=== PATIENT | female | born 1990 | race Caucasian/White ===

== ENCOUNTER 2016-11-17 16:41 | Inpatient (IN) | payer BC ==
[2016-11-17] MEDS ORDERED: Misoprostol 200 MCG Tab PO PRN (16:52)
[2016-11-17] MEDS ORDERED: Lidocaine 1% 50 ML MDV INJECT PRN (16:52)
[2016-11-17] MEDS ORDERED: Water For Irrigation,Sterile 1,000 ML Container IRR PRN (16:52)
[2016-11-17] MEDS ORDERED: Sodium Chloride 0.9% 2.5 ML Syringe FLUSH PRN (16:52)
[2016-11-17] MEDS ORDERED: Butorphanol 1 MG/ML SDV IVPUSH PRN (16:52)
[2016-11-17] MEDS ORDERED: Methylergonovine 0.2 MG/1 ML Amp IM PRN (16:52)
[2016-11-17] MEDS ORDERED: Sodium Chloride 0.9% 10 ML Syringe FLUSH PRN (16:52)
[2016-11-17] MEDS ORDERED: Carboprost Tromethamine 250 MCG/1 ML Amp IM PRN (16:52)
[2016-11-17] MEDS ORDERED: Terbutaline 1 MG/ML SDV SUBCUT PRN (16:52)
[2016-11-17] MEDS ORDERED: Oxytocin/Lactated Ringers 30 UNIT/500 ML BAG IV SCH ×2 (17:00)
[2016-11-17] MEDS ORDERED: Misoprostol 25 MCG (1/4 of 100 MCG) Tab VAG SCH (17:00)
[2016-11-17] MEDS: Lactated Ringers 1,000 ML IV SCH (17:49)
[2016-11-17] MEDS ORDERED: Misoprostol 50 MCG (1/2 of 100 MCG) Tab VAG ONE ×2 (22:18→22:26)
[2016-11-18] MEDS: Lactated Ringers 1,000 ML IV SCH ×5 (01:20→08:16)
[2016-11-18] MEDS ORDERED: fentaNYL 100 MCG/2 ML SDV ONE (06:29)
[2016-11-18] MEDS ORDERED: Ropivacaine HCl/PF 100 ML ONE (06:29)
--- NOTE | 2016-11-18 06:31 | PCM.PREANE ---
Preanesthetic Assessment - Anesthesia/Transfusion/Family Hx Anesthesia History: Prior Anesthesia Without Reaction Other Type of Anesthesia Reaction Comment: Denies any known problems in past Transfusion History: No Prior Transfusion(s) - Review of Systems General: No Symptoms Pulmonary: No Symptoms Cardiovascular: No Symptoms Gastrointestinal: No Symptoms Neurological: No Symptoms Other: Reports: None - Physical Assessment Height: 5 ft 6 in Weight: 76.657 kg ASA Class: 2 Mental Status: Alert & Oriented x3 Airway Class: Mallampati = 2 Dentition: Reports: Normal Dentition Thyro-Mental Finger Breadths: 3 Mouth Opening Finger Breadths: 3 ROM/Head Extension: Full Lungs: Clear to Auscultation, Normal Respiratory Effort Cardiovascular: Regular Rate, Regular Rhythm - Lab Values: Laboratory Last Values WBC 7.81 K/uL (4.0-11.0) 11/17/16 17:40 RBC 4.26 M/uL (4.30-5.90) L 11/17/16 17:40 Hgb 12.0 g/dL (12.0-16.0) 11/17/16 17:40 Hct 35.6 % (36.0-46.0) L 11/17/16 17:40 MCV 83.6 fL (80.0-98.0) 11/17/16 17:40 MCH 28.2 pg (27.0-32.0) 11/17/16 17:40 MCHC 33.7 g/dL (31.0-37.0) 11/17/16 17:40 RDW Std Deviation 41.0 fl (28.0-62.0) 11/17/16 17:40 RDW Coeff of Wilma 14 % (11.0-15.0) 11/17/16 17:40 Plt Count 208 K/uL (150-400) 11/17/16 17:40 MPV 10.00 fL (7.40-12.00) 11/17/16 17:40 Nucleated RBC % 0.0 /100WBC 11/17/16 17:40 Nucleated RBCs # 0 K/uL 11/17/16 17:40 Blood Type O POSITIVE 11/17/16 17:40 Antibody Screen NEGATIVE 11/17/16 17:40 - Allergies Allergies/Adverse Reactions: Allergies Allergy/AdvReac Type Severity Reaction Status Date / Time No Known Allergies Allergy Verified 04/24/14 15:17 - Acknowledgements Anesthesia Type Planned: Epidural Pt an Appropriate Candidate for the Planned Anesthesia: Yes Alternatives and Risks of Anesthesia Discussed w Pt/Guardian: Yes Pt/Guardian Understands and Agrees with Anesthesia Plan: Yes PreAnesthesia Questionnaire HEENT History: Reports: None Cardiovascular History: Reports: None Respiratory History: Reports: None Gastrointestinal History: Reports: GERD Genitourinary History: Reports: None CHUCK BONER History: Reports: , Spontaneous : 3 Para: 1 LMP (Approximate): Musculoskeletal History: Reports: None Neurological History: Reports: None Psychiatric History: Reports: Anxiety Endocrine/Metabolic History: Reports: None Hematologic History: Reports: None Immunologic History: Reports: None - Infectious Disease History Infectious Disease History: Reports: Hepatitis C, Other (See Below) Other Infectious Disease History: pt states at the begining of this she tested positive for hep c but then testing later in was a negative viral load - Past Surgical History HEENT Surgical History: Reports: Adenoidectomy, Tonsillectomy - SUBSTANCE USE Smoking Status *Q: Never Smoker Days Per Week of Alcohol Use: 0 Number of Drinks Per Day: 0 Total Drinks Per Week: 0 Recreational Drug Use History: No - HOME MEDS Home Medications: Home Meds Vit No.78/Iron/Fa [Prenatabs FA] 1 tab PO DAILY 04/24/14 [History] Acetaminophen/Codeine [Tylenol with Codeine No.3 300MG/30MG] 1 - 2 tab PO Q4H PRN #20 tablet 04/25/14 [Rx] - CURRENT (IN HOUSE) MEDS Current Meds: Current Medications Butorphanol Tartrate (Stadol) 1 mg IVPUSH Q1H PRN PRN Reason: Pain Last Admin: 11/18/16 04:27 Dose: 1 mg Carboprost Tromethamine (Hemabate Ds) 250 mcg IM ASDIRECTED PRN PRN Reason: Post Hemorrhage Lactated Ringer's (Ringers, Lactated) 1,000 mls @ 150 mls/hr IV ASDIRECTED MILI Last Admin: 11/18/16 06:17 Dose: 150 mls/hr Oxytocin/Lactated Ringer's (Pitocin In Lr 30 Units/500 Ml) 30 unit in 500 mls @ 2 mls/hr IV TITRATE MILI; 2 MUNITS/MIN PRN Reason: Protocol Last Titration: 11/18/16 03:56 Dose: 6 munits/min, 6 mls/hr Lidocaine HCl (Xylocaine 1%) 50 ml INJECT .ONCE PRN PRN Reason: Laceration repair Methylergonovine Maleate (Methergine) 0.2 mg IM ASDIRECTED PRN PRN Reason: Post Hemorrhage Misoprostol (Cytotec) 200 mcg PO .ONCE PRN PRN Reason: Post Hemorrhage Misoprostol (Cytotec) 25 mcg VAG .ONCE MILI Last Admin: 11/17/16 17:59 Dose: 25 mcg Sodium Chloride (Saline Flush) 10 ml FLUSH ASDIRECTED PRN PRN Reason: Keep Vein Open Sodium Chloride (Saline Flush) 2.5 ml FLUSH ASDIRECTED PRN PRN Reason: Keep Vein Open Sterile Water (Sterile Water For Irrigation) 1,000 ml IRR ASDIRECTED PRN PRN Reason: delivery Terbutaline Sulfate (Brethine) 0.25 mg SUBCUT ASDIRECTED PRN PRN Reason: Tacysystole Last Admin: 11/18/16 01:14 Dose: 0.25 mg Discontinued Medications Oxytocin/Lactated Ringer's (Pitocin In Lr 30 Units/500 Ml) 30 unit in 500 mls @ 500 mls/hr IV ASDIRECTED MILI PRN Reason: 500 MUNITS/MIN Stop: 11/17/16 17:59 Misoprostol (Cytotec) 50 mcg VAG ONETIME ONE Stop: 11/17/16 22:19 Misoprostol (Cytotec) 25 mcg VAG ONETIME ONE Stop: 11/17/16 22:27 Last Admin: 11/17/16 22:38 Dose: 25 mcg
[2016-11-18] MEDS ORDERED: Docusate Sodium 100 MG Cap PO PRN (09:43)
[2016-11-18] MEDS ORDERED: Acetaminophen 500 MG Tab PO PRN ×2 (09:43)
[2016-11-18] MEDS ORDERED: Hydrocortisone 2.5% Crm 30 GM Tube TOP PRN (09:43)
[2016-11-18] MEDS ORDERED: Aluminum Hydroxide/Magnesium Hydroxide/Simethicone Susp 30 ML Cup PO PRN (09:43)
[2016-11-18] MEDS ORDERED: oxyCODONE 5 MG Tab PO PRN (09:43)
[2016-11-18] MEDS ORDERED: Witch Hazel Medicated Pads 40/Jar TOP PRN (09:43)
[2016-11-18] MEDS ORDERED: Benzocaine/Menthol 20%-0.5% Spray 78 GM Cannister TOP PRN (09:43)
[2016-11-18] MEDS ORDERED: Bisacodyl 10 MG Supp RECTAL PRN (09:43)
[2016-11-18] MEDS ORDERED: Lanolin 100% Cream 7 GM Tube TOP PRN (09:43)
[2016-11-18] MEDS ORDERED: Ibuprofen 400 MG Tab PO PRN (09:43)
[2016-11-18] MEDS: Ibuprofen 800 MG Tab PO PRN ×2 (11:46→18:00)
--- NOTE | 2016-11-18 16:14 | OR ---
SURGEON: Naomi Menezes M.D. DATE OF PROCEDURE: 11/18/2016 PREOPERATIVE DIAGNOSES: 1. A 39 and 1 week intrauterine . 2. Induction of labor. 3. Polyhydramnios. POSTOPERATIVE DIAGNOSES: 1. A 39 and 1 week intrauterine . 2. Induction of labor. 3. Polyhydramnios. PROCEDURE: Spontaneous vaginal delivery with intact perineum. LINING SETTER: Jordon Welch, 4. ANESTHESIA: Spinal. ESTIMATED BLOOD LOSS: 300 mL. COMPLICATION: None. FINDINGS: Term male, score 9 at 1 minute, 9 at 5 minutes, weight is pending. Spontaneous delivery, intact placenta, three-vessel cord. Nuchal cord x1 reduced manually. DISPOSITION: The patient to [facility], infant to nursery, stable. DESCRIPTION OF PROCEDURE: Rashmi is a G3, P1-0-1-1, at 39 weeks' gestational age, who presented on the evening of 11/17/2016 for elective induction of labor due to polyhydramnios at term gestation. TORCH titers have been negative. Gestational diabetes screen was normal. Cervical exam initially was unfavorable at 1 cm, fairly thick, -3 station. Therefore, she was initiated on Cytotec ripening. She responded nicely to this and made cervical change throughout the evening hours and in case hardener hours. Pitocin was initiated on case hardener 11/18/2016. The patient was found to be 4 cm, 70% effaced, -1 station. Shortly before 5:00 a.m. Amniotomy was performed. Copious amount of clear fluid was returned. The patient underwent regional anesthesia in the form of spinal, became more comfortable and progressed nicely to 8 cm shortly after 7:00 a.m., shortly after 8:00 a.m., she continued to have increasing pressure. heart tones were in the 110s with occasional early deceleration to the 90s to 100s. She progressed to complete and felt the urge to push. The patient was placed in modified dorsal lithotomy position. She was prepped and draped in the usual aseptic manner. With the next 2 contractions, she was able to push to deliver 's head atraumatically, spontaneously, followed by anterior shoulder, posterior shoulder, remainder of body without difficulty. The infant's oropharynx, nares were bulb suctioned. Cord was clamped x2 and cut. was handed off to mother with attending nursing staff at her side. Cord arterial, cord venous, cord blood sampling were obtained. Light suprapubic pressure was applied while the placenta was delivered spontaneously intact. Vigorous fundal uterine massage was then applied while 30 units Pitocin was delivered in 500 mL IV fluid. Upon inspection of cervix, vaginal sidewalls, and perineum, these were found to be intact. Uterus remained firm. Hemostasis evident. Sponge count was correct. The patient remained in LDRP. Infant to nursery. CHRIS / LIZZY /[id number]
--- NOTE | 2016-11-19 07:29 | PCM.PNPP ---
<Eliecer Wilcox - Last Filed: 11/19/16 07:24> - General Info Date of Service: 11/19/16 Admission Dx/Problem (Free Text): 39/1 week gestation Induction of labor due to polyhydramnios Subjective Update: Patient is feeling well this morning. Has decreasing non foul smelling lochia. Patient is without difficulty. Patient has had no difficulty urinating. Pain controlled with Motrin. Patient denies fever, chills, shortness of breath, or chest pain. Functional Status: Reports: Pain Controlled - Review of Systems General: Reports: No Symptoms Pulmonary: Reports: No Symptoms Cardiovascular: Reports: No Symptoms Gastrointestinal: Reports: No Symptoms - General Info Date of Service: 11/19/16 - Patient Data Vital Signs - Most Recent: Last Vital Signs Temp 36.9 C 11/19/16 04:35 Pulse 77 11/19/16 04:35 Resp 20 11/19/16 04:35 BP 125/57 L 11/19/16 04:35 Pulse Ox 98 11/19/16 04:35 Weight - Most Recent: 76.657 kg Lab Results - Last 24 Hours: Laboratory Results - last 24 hr 11/19/16 Range/Units 04:33 Hgb 10.5 L (12.0-16.0) g/dL Hct 31.8 L (36.0-46.0) % Med Orders - Current: Current Medications Acetaminophen (Tylenol Extra Strength) 500 mg PO Q4H PRN PRN Reason: Pain Acetaminophen (Tylenol Extra Strength) 1,000 mg PO Q4H PRN PRN Reason: Pain Al Hydroxide/Mg Hydroxide (Mag-Al Plus) 30 ml PO Q8H PRN PRN Reason: Heartburn Benzocaine/Menthol (Dermoplast Pain Relief 20%-0.5% Pyatt) 78 gm TOP ASDIRECTED PRN PRN Reason: Perineal Comfort Measure Last Admin: 11/18/16 11:44 Dose: 1 can Bisacodyl (Dulcolax) 10 mg RECTAL .ONCE PRN PRN Reason: Constipation Carboprost Tromethamine (Hemabate Ds) 250 mcg IM ASDIRECTED PRN PRN Reason: Post Hemorrhage Docusate Sodium (Colace) 100 mg PO BID PRN PRN Reason: Constipation Last Admin: 11/18/16 11:46 Dose: 100 mg Emollient Ointment (Lansinoh Hpa) 0 gm TOP ASDIRECTED PRN PRN Reason: Sore Nipples Last Admin: 11/18/16 18:02 Dose: 1 tube Hydrocortisone (Proctozone-Hc 2.5% Crm) 1 gm TOP 6XDAY PRN PRN Reason: Itching Lactated Ringer's (Ringers, Lactated) 1,000 mls @ 150 mls/hr IV ASDIRECTED MILI Last Admin: 11/18/16 08:16 Dose: 150 mls/hr Oxytocin/Lactated Ringer's (Pitocin In Lr 30 Units/500 Ml) 30 unit in 500 mls @ 2 mls/hr IV TITRATE MILI; 2 MUNITS/MIN PRN Reason: Protocol Last Titration: 11/18/16 09:11 Dose: 300 mls/hr Ibuprofen (Motrin) 400 mg PO Q4H PRN PRN Reason: Pain Ibuprofen (Motrin) 800 mg PO Q6H PRN PRN Reason: Pain Last Admin: 11/18/16 18:00 Dose: 800 mg Methylergonovine Maleate (Methergine) 0.2 mg IM ASDIRECTED PRN PRN Reason: Post Hemorrhage Oxycodone HCl (Oxycodone) 5 mg PO Q2H PRN PRN Reason: Pain Sodium Chloride (Saline Flush) 10 ml FLUSH ASDIRECTED PRN PRN Reason: Keep Vein Open Sodium Chloride (Saline Flush) 2.5 ml FLUSH ASDIRECTED PRN PRN Reason: Keep Vein Open Witch Harriet (Tucks) 1 pad TOP ASDIRECTED PRN PRN Reason: comfort care Discontinued Medications Butorphanol Tartrate (Stadol) 1 mg IVPUSH Q1H PRN PRN Reason: Pain Last Admin: 11/18/16 04:27 Dose: 1 mg Fentanyl (Sublimaze) Confirm Administered Dose 100 mcg .ROUTE .STK-MED ONE Stop: 11/18/16 06:30 Oxytocin/Lactated Ringer's (Pitocin In Lr 30 Units/500 Ml) 30 unit in 500 mls @ 500 mls/hr IV ASDIRECTED MILI PRN Reason: 500 MUNITS/MIN Stop: 11/17/16 17:59 Ropivacaine (Naropin 0.2%) Confirm Administered Dose 100 mls @ as directed .ROUTE .STK-MED ONE Stop: 11/18/16 06:30 Lidocaine HCl (Xylocaine 1%) 50 ml INJECT .ONCE PRN PRN Reason: Laceration repair Misoprostol (Cytotec) 200 mcg PO .ONCE PRN PRN Reason: Post Hemorrhage Misoprostol (Cytotec) 25 mcg VAG .ONCE MILI Last Admin: 11/17/16 17:59 Dose: 25 mcg Misoprostol (Cytotec) 50 mcg VAG ONETIME ONE Stop: 11/17/16 22:19 Misoprostol (Cytotec) 25 mcg VAG ONETIME ONE Stop: 11/17/16 22:27 Last Admin: 11/17/16 22:38 Dose: 25 mcg Sterile Water (Sterile Water For Irrigation) 1,000 ml IRR ASDIRECTED PRN PRN Reason: delivery Last Admin: 11/18/16 09:10 Dose: 1,000 ml Terbutaline Sulfate (Brethine) 0.25 mg SUBCUT ASDIRECTED PRN PRN Reason: Tacysystole Last Admin: 11/18/16 01:14 Dose: 0.25 mg - Infant Interaction Disposition, : [place] in Room with Family Interaction: Holding Infant Infant Feeding: Breastfed ; Nursed Well Support Person: - Recovery Exam Fundal Tone: Firm Fundal Level: 2 Fingerbreadths Below Umbilicus Fundal Placement: Midline Lochia Amount: Small Lochia Color: Rubra/Red Perineum Description: Intact, Minimal Bruising/Swelling Episiotomy/Laceration: None Bladder Status: Nonpalpable Urinary Elimination: Voided - Exam General: Alert, Oriented Lungs: Clear to Auscultation, Normal Respiratory Effort. No: Crackles, Rales, Rhonchi Cardiovascular: Regular Rate, Regular Rhythm, No Murmurs. No: Rubs GI/Abdominal Exam: Soft (Uterus midline, firm, fundus below umbilicus), No Organomegaly, No Distention - Problem List & Annotations (1) Vaginal delivery SNOMED Code(s): 897471336 Code(s): O80 - ENCOUNTER FOR FULL-TERM UNCOMPLICATED DELIVERY Status: Acute Priority: High Current Visit: Yes (2) Polyhydramnios SNOMED Code(s): 86498904 Code(s): O40.9XX0 - POLYHYDRAMNIOS, UNSP TRIMESTER, NOT APPLICABLE OR UNSP Status: Resolved Current Visit: Yes QualifierTitle: Fetus number: single or unspecified fetus Trimester: third trimester Qualified Code(s): O40.3XX0 - Polyhydramnios, third trimester , not applicable or unspecified - Problem List Review Problem List Initiated/Reviewed/Updated: Yes - Assessment Assessment:: 26 y.o. female 39/1 weeks gestation status post spontaneous vaginal delivery, induction of labor, polyhydramnios day 1 Pain well controlled Patient voiding well - Plan Plan:: Routine cares, continue pain control, continue support for and frequent ambulation. Followup with Dr. Menezes in 6 weeks. <Naomi Menezes - Last Filed: 11/19/16 08:51> - Patient Data Vital Signs - Most Recent: Last Vital Signs Temp 36.9 C 11/19/16 04:35 Pulse 77 11/19/16 04:35 Resp 20 11/19/16 04:35 BP 125/57 L 11/19/16 04:35 Pulse Ox 98 11/19/16 04:35 Lab Results - Last 24 Hours: Laboratory Results - last 24 hr 11/19/16 Range/Units 04:33 Hgb 10.5 L (12.0-16.0) g/dL Hct 31.8 L (36.0-46.0) % Med Orders - Current: Current Medications Acetaminophen (Tylenol Extra Strength) 500 mg PO Q4H PRN PRN Reason: Pain Acetaminophen (Tylenol Extra Strength) 1,000 mg PO Q4H PRN PRN Reason: Pain Al Hydroxide/Mg Hydroxide (Mag-Al Plus) 30 ml PO Q8H PRN PRN Reason: Heartburn Benzocaine/Menthol (Dermoplast Pain Relief 20%-0.5% Pyatt) 78 gm TOP ASDIRECTED PRN PRN Reason: Perineal Comfort Measure Last Admin: 11/18/16 11:44 Dose: 1 can Bisacodyl (Dulcolax) 10 mg RECTAL .ONCE PRN PRN Reason: Constipation Carboprost Tromethamine (Hemabate Ds) 250 mcg IM ASDIRECTED PRN PRN Reason: Post Hemorrhage Docusate Sodium (Colace) 100 mg PO BID PRN PRN Reason: Constipation Last Admin: 11/18/16 11:46 Dose: 100 mg Emollient Ointment (Lansinoh Hpa) 0 gm TOP ASDIRECTED PRN PRN Reason: Sore Nipples Last Admin: 11/18/16 18:02 Dose: 1 tube Hydrocortisone (Proctozone-Hc 2.5% Crm) 1 gm TOP 6XDAY PRN PRN Reason: Itching Lactated Ringer's (Ringers, Lactated) 1,000 mls @ 150 mls/hr IV ASDIRECTED MILI Last Admin: 11/18/16 08:16 Dose: 150 mls/hr Oxytocin/Lactated Ringer's (Pitocin In Lr 30 Units/500 Ml) 30 unit in 500 mls @ 2 mls/hr IV TITRATE MILI; 2 MUNITS/MIN PRN Reason: Protocol Last Titration: 11/18/16 09:11 Dose: 300 mls/hr Ibuprofen (Motrin) 400 mg PO Q4H PRN PRN Reason: Pain Ibuprofen (Motrin) 800 mg PO Q6H PRN PRN Reason: Pain Last Admin: 11/18/16 18:00 Dose: 800 mg Methylergonovine Maleate (Methergine) 0.2 mg IM ASDIRECTED PRN PRN Reason: Post Hemorrhage Oxycodone HCl (Oxycodone) 5 mg PO Q2H PRN PRN Reason: Pain Sodium Chloride (Saline Flush) 10 ml FLUSH ASDIRECTED PRN PRN Reason: Keep Vein Open Sodium Chloride (Saline Flush) 2.5 ml FLUSH ASDIRECTED PRN PRN Reason: Keep Vein Open Witch Harriet (Tucks) 1 pad TOP ASDIRECTED PRN PRN Reason: comfort care Discontinued Medications Butorphanol Tartrate (Stadol) 1 mg IVPUSH Q1H PRN PRN Reason: Pain Last Admin: 11/18/16 04:27 Dose: 1 mg Fentanyl (Sublimaze) Confirm Administered Dose 100 mcg .ROUTE .STK-MED ONE Stop: 11/18/16 06:30 Oxytocin/Lactated Ringer's (Pitocin In Lr 30 Units/500 Ml) 30 unit in 500 mls @ 500 mls/hr IV ASDIRECTED MILI PRN Reason: 500 MUNITS/MIN Stop: 11/17/16 17:59 Ropivacaine (Naropin 0.2%) Confirm Administered Dose 100 mls @ as directed .ROUTE .STK-MED ONE Stop: 11/18/16 06:30 Lidocaine HCl (Xylocaine 1%) 50 ml INJECT .ONCE PRN PRN Reason: Laceration repair Misoprostol (Cytotec) 200 mcg PO .ONCE PRN PRN Reason: Post Hemorrhage Misoprostol (Cytotec) 25 mcg VAG .ONCE MILI Last Admin: 11/17/16 17:59 Dose: 25 mcg Misoprostol (Cytotec) 50 mcg VAG ONETIME ONE Stop: 11/17/16 22:19 Misoprostol (Cytotec) 25 mcg VAG ONETIME ONE Stop: 11/17/16 22:27 Last Admin: 11/17/16 22:38 Dose: 25 mcg Sterile Water (Sterile Water For Irrigation) 1,000 ml IRR ASDIRECTED PRN PRN Reason: delivery Last Admin: 11/18/16 09:10 Dose: 1,000 ml Terbutaline Sulfate (Brethine) 0.25 mg SUBCUT ASDIRECTED PRN PRN Reason: Tacysystole Last Admin: 11/18/16 01:14 Dose: 0.25 mg - My Orders Last 24 Hours: My Active Orders 11/18/16 09:43 May Shower [RC] ASDIRECTED Up ad Angie [RC] ASDIRECTED Vital Signs [RC] PER UNIT ROUTINE Acetaminophen [Tylenol Extra Strength] 1,000 mg PO Q4H PRN Acetaminophen [Tylenol Extra Strength] 500 mg PO Q4H PRN Alum Hydrox/Mag Hydrox/Simeth [Mag-Al Plus] 30 ml PO Q8H PRN Benzocaine/Menthol [Dermoplast Pain Relief 20%-0.5% Pyatt] 78 gm TOP ASDIRECTED PRN Bisacodyl [Dulcolax] 10 mg RECTAL .ONCE PRN Docusate Sodium [Colace] 100 mg PO BID PRN Hydrocortisone [Proctozone-HC 2.5% Crm] 1 gm TOP 6XDAY PRN Ibuprofen [Motrin] 400 mg PO Q4H PRN Ibuprofen [Motrin] 800 mg PO Q6H PRN Lanolin [Lansinoh HPA] See Dose Instructions TOP ASDIRECTED PRN Witch Harriet [Tucks] 1 pad TOP ASDIRECTED PRN oxyCODONE 5 mg PO Q2H PRN Assess Lochia [WOMSER] Per Unit Routine Assess Uterine Involution [WOMSER] Per Unit Routine Breast Pump [WOMSER] Per Unit Routine Peripheral IV Discontinue [OM.PC] Routine 11/18/16 09:44 Ice Therapy [OM.PC] Per Unit Routine Perineal Care [OM.PC] Per Unit Routine Sitz Bath [OM.PC] Per Unit Routine - Plan Plan:: Patient seen and examined. Agree with above note. Discharge to home today. Infection and bleeding warnings reviewed. Discharge instructions reviewed.
[2016-11-19] MEDS: Ibuprofen 800 MG Tab PO PRN ×2 (10:00→20:34)
--- NOTE | 2016-11-20 07:34 | PCM.PNPP ---
<Eliecer Wilcox - Last Filed: 11/20/16 07:28> - General Info Date of Service: 11/20/16 Admission Dx/Problem (Free Text): 39/1 week gestation Induction of labor due to polyhydramnios Subjective Update: Patient is feeling well this morning. Has decreasing non foul smelling lochia. Patient is without difficulty. Patient has had no difficulty urinating and has had a bowel movement. Pain controlled with Motrin. Patient denies fever, chills, shortness of breath, or chest pain. Functional Status: Reports: Pain Controlled - Review of Systems Pulmonary: Reports: No Symptoms Cardiovascular: Reports: No Symptoms Gastrointestinal: Reports: No Symptoms Genitourinary: Reports: No Symptoms - General Info Date of Service: 11/20/16 - Patient Data Vital Signs - Most Recent: Last Vital Signs Temp 36.7 C 11/19/16 20:00 Pulse 65 11/19/16 20:00 Resp 16 11/19/16 20:00 BP 131/61 11/19/16 20:00 Pulse Ox 97 11/19/16 18:00 Weight - Most Recent: 76.657 kg Med Orders - Current: Current Medications Acetaminophen (Tylenol Extra Strength) 500 mg PO Q4H PRN PRN Reason: Pain Acetaminophen (Tylenol Extra Strength) 1,000 mg PO Q4H PRN PRN Reason: Pain Al Hydroxide/Mg Hydroxide (Mag-Al Plus) 30 ml PO Q8H PRN PRN Reason: Heartburn Benzocaine/Menthol (Dermoplast Pain Relief 20%-0.5% [place]) 78 gm TOP ASDIRECTED PRN PRN Reason: Perineal Comfort Measure Last Admin: 11/18/16 11:44 Dose: 1 can Bisacodyl (Dulcolax) 10 mg RECTAL .ONCE PRN PRN Reason: Constipation Carboprost Tromethamine (Hemabate Ds) 250 mcg IM ASDIRECTED PRN PRN Reason: Post Hemorrhage Docusate Sodium (Colace) 100 mg PO BID PRN PRN Reason: Constipation Last Admin: 11/18/16 11:46 Dose: 100 mg Emollient Ointment (Lansinoh Hpa) 0 gm TOP ASDIRECTED PRN PRN Reason: Sore Nipples Last Admin: 11/18/16 18:02 Dose: 1 tube Hydrocortisone (Proctozone-Hc 2.5% Crm) 1 gm TOP 6XDAY PRN PRN Reason: Itching Lactated Ringer's (Ringers, Lactated) 1,000 mls @ 150 mls/hr IV ASDIRECTED MILI Last Admin: 11/18/16 08:16 Dose: 150 mls/hr Oxytocin/Lactated Ringer's (Pitocin In Lr 30 Units/500 Ml) 30 unit in 500 mls @ 2 mls/hr IV TITRATE MILI; 2 MUNITS/MIN PRN Reason: Protocol Last Titration: 11/18/16 09:11 Dose: 300 mls/hr Ibuprofen (Motrin) 400 mg PO Q4H PRN PRN Reason: Pain Ibuprofen (Motrin) 800 mg PO Q6H PRN PRN Reason: Pain Last Admin: 11/19/16 20:34 Dose: 800 mg Methylergonovine Maleate (Methergine) 0.2 mg IM ASDIRECTED PRN PRN Reason: Post Hemorrhage Oxycodone HCl (Oxycodone) 5 mg PO Q2H PRN PRN Reason: Pain Sodium Chloride (Saline Flush) 10 ml FLUSH ASDIRECTED PRN PRN Reason: Keep Vein Open Sodium Chloride (Saline Flush) 2.5 ml FLUSH ASDIRECTED PRN PRN Reason: Keep Vein Open Witch Harriet (Tucks) 1 pad TOP ASDIRECTED PRN PRN Reason: comfort care Discontinued Medications Butorphanol Tartrate (Stadol) 1 mg IVPUSH Q1H PRN PRN Reason: Pain Last Admin: 11/18/16 04:27 Dose: 1 mg Fentanyl (Sublimaze) Confirm Administered Dose 100 mcg .ROUTE .STK-MED ONE Stop: 11/18/16 06:30 Oxytocin/Lactated Ringer's (Pitocin In Lr 30 Units/500 Ml) 30 unit in 500 mls @ 500 mls/hr IV ASDIRECTED MILI PRN Reason: 500 MUNITS/MIN Stop: 11/17/16 17:59 Ropivacaine (Naropin 0.2%) Confirm Administered Dose 100 mls @ as directed .ROUTE .STK-MED ONE Stop: 11/18/16 06:30 Lidocaine HCl (Xylocaine 1%) 50 ml INJECT .ONCE PRN PRN Reason: Laceration repair Misoprostol (Cytotec) 200 mcg PO .ONCE PRN PRN Reason: Post Hemorrhage Misoprostol (Cytotec) 25 mcg VAG .ONCE MILI Last Admin: 11/17/16 17:59 Dose: 25 mcg Misoprostol (Cytotec) 50 mcg VAG ONETIME ONE Stop: 11/17/16 22:19 Misoprostol (Cytotec) 25 mcg VAG ONETIME ONE Stop: 11/17/16 22:27 Last Admin: 11/17/16 22:38 Dose: 25 mcg Sterile Water (Sterile Water For Irrigation) 1,000 ml IRR ASDIRECTED PRN PRN Reason: delivery Last Admin: 11/18/16 09:10 Dose: 1,000 ml Terbutaline Sulfate (Brethine) 0.25 mg SUBCUT ASDIRECTED PRN PRN Reason: Tacysystole Last Admin: 11/18/16 01:14 Dose: 0.25 mg - Interaction Disposition, : Satin to Nursery (High billirubin, under joshua light) Infant Interaction: Holding Feeding: Breastfed Infant; Nursed Well Support Person: - Recovery Exam Fundal Tone: Firm Fundal Level: 3 Fingerbreadths Below Umbilicus Fundal Placement: Midline Lochia Amount: Small Lochia Color: Rubra/Red Perineum Description: Intact, Minimal Bruising/Swelling Episiotomy/Laceration: None Bladder Status: Voiding Urinary Elimination: Voided - Exam General: Alert, Oriented Lungs: Clear to Auscultation, Normal Respiratory Effort. No: Crackles, Rales, Rhonchi Cardiovascular: Regular Rate, Regular Rhythm. No: Murmurs, Gallops, Rubs GI/Abdominal Exam: Normal Bowel Sounds, Soft (Firm, midline uterus, 4cm below umbilicus, mildly tender ) - Problem List & Annotations (1) Vaginal delivery SNOMED Code(s): 642946167 Code(s): O80 - ENCOUNTER FOR FULL-TERM UNCOMPLICATED DELIVERY Status: Acute Priority: High Current Visit: Yes (2) Polyhydramnios SNOMED Code(s): 83156951 Code(s): O40.9XX0 - POLYHYDRAMNIOS, UNSP TRIMESTER, NOT APPLICABLE OR UNSP Status: Resolved Current Visit: Yes QualifierTitle: Fetus number: single or unspecified fetus Trimester: third trimester Qualified Code(s): O40.3XX0 - Polyhydramnios, third trimester , not applicable or unspecified - Problem List Review Problem List Initiated/Reviewed/Updated: Yes - Assessment Assessment:: 26 y.o. female 39/1 weeks gestation status post spontaneous vaginal delivery, induction of labor, polyhydramnios day 2 Pain well controlled Patient voiding well - Plan Plan:: Routine cares. Continue current pain management. Continue to support and frequent ambulations. Discharge later today. <Naomi Menezes - Last Filed: 11/20/16 08:46> - Patient Data Vital Signs - Most Recent: Last Vital Signs Temp 36.7 C 11/19/16 20:00 Pulse 65 11/19/16 20:00 Resp 16 11/19/16 20:00 BP 131/61 11/19/16 20:00 Pulse Ox 97 11/19/16 18:00 Med Orders - Current: Current Medications Acetaminophen (Tylenol Extra Strength) 500 mg PO Q4H PRN PRN Reason: Pain Acetaminophen (Tylenol Extra Strength) 1,000 mg PO Q4H PRN PRN Reason: Pain Al Hydroxide/Mg Hydroxide (Mag-Al Plus) 30 ml PO Q8H PRN PRN Reason: Heartburn Benzocaine/Menthol (Dermoplast Pain Relief 20%-0.5% [place]) 78 gm TOP ASDIRECTED PRN PRN Reason: Perineal Comfort Measure Last Admin: 11/18/16 11:44 Dose: 1 can Bisacodyl (Dulcolax) 10 mg RECTAL .ONCE PRN PRN Reason: Constipation Carboprost Tromethamine (Hemabate Ds) 250 mcg IM ASDIRECTED PRN PRN Reason: Post Hemorrhage Docusate Sodium (Colace) 100 mg PO BID PRN PRN Reason: Constipation Last Admin: 11/18/16 11:46 Dose: 100 mg Emollient Ointment (Lansinoh Hpa) 0 gm TOP ASDIRECTED PRN PRN Reason: Sore Nipples Last Admin: 11/18/16 18:02 Dose: 1 tube Hydrocortisone (Proctozone-Hc 2.5% Crm) 1 gm TOP 6XDAY PRN PRN Reason: Itching Lactated Ringer's (Ringers, Lactated) 1,000 mls @ 150 mls/hr IV ASDIRECTED MILI Last Admin: 11/18/16 08:16 Dose: 150 mls/hr Oxytocin/Lactated Ringer's (Pitocin In Lr 30 Units/500 Ml) 30 unit in 500 mls @ 2 mls/hr IV TITRATE MILI; 2 MUNITS/MIN PRN Reason: Protocol Last Titration: 11/18/16 09:11 Dose: 300 mls/hr Ibuprofen (Motrin) 400 mg PO Q4H PRN PRN Reason: Pain Ibuprofen (Motrin) 800 mg PO Q6H PRN PRN Reason: Pain Last Admin: 11/19/16 20:34 Dose: 800 mg Methylergonovine Maleate (Methergine) 0.2 mg IM ASDIRECTED PRN PRN Reason: Post Hemorrhage Oxycodone HCl (Oxycodone) 5 mg PO Q2H PRN PRN Reason: Pain Sodium Chloride (Saline Flush) 10 ml FLUSH ASDIRECTED PRN PRN Reason: Keep Vein Open Sodium Chloride (Saline Flush) 2.5 ml FLUSH ASDIRECTED PRN PRN Reason: Keep Vein Open Witch Harriet (Tucks) 1 pad TOP ASDIRECTED PRN PRN Reason: comfort care Discontinued Medications Butorphanol Tartrate (Stadol) 1 mg IVPUSH Q1H PRN PRN Reason: Pain Last Admin: 11/18/16 04:27 Dose: 1 mg Fentanyl (Sublimaze) Confirm Administered Dose 100 mcg .ROUTE .STK-MED ONE Stop: 11/18/16 06:30 Oxytocin/Lactated Ringer's (Pitocin In Lr 30 Units/500 Ml) 30 unit in 500 mls @ 500 mls/hr IV ASDIRECTED MILI PRN Reason: 500 MUNITS/MIN Stop: 11/17/16 17:59 Ropivacaine (Naropin 0.2%) Confirm Administered Dose 100 mls @ as directed .ROUTE .STK-MED ONE Stop: 11/18/16 06:30 Lidocaine HCl (Xylocaine 1%) 50 ml INJECT .ONCE PRN PRN Reason: Laceration repair Misoprostol (Cytotec) 200 mcg PO .ONCE PRN PRN Reason: Post Hemorrhage Misoprostol (Cytotec) 25 mcg VAG .ONCE MILI Last Admin: 11/17/16 17:59 Dose: 25 mcg Misoprostol (Cytotec) 50 mcg VAG ONETIME ONE Stop: 11/17/16 22:19 Misoprostol (Cytotec) 25 mcg VAG ONETIME ONE Stop: 11/17/16 22:27 Last Admin: 11/17/16 22:38 Dose: 25 mcg Sterile Water (Sterile Water For Irrigation) 1,000 ml IRR ASDIRECTED PRN PRN Reason: delivery Last Admin: 11/18/16 09:10 Dose: 1,000 ml Terbutaline Sulfate (Brethine) 0.25 mg SUBCUT ASDIRECTED PRN PRN Reason: Tacysystole Last Admin: 11/18/16 01:14 Dose: 0.25 mg - My Orders Last 24 Hours: My Active Orders 11/19/16 08:54 Ready for Discharge [RC] PER UNIT ROUTINE - Plan Plan:: Patient seen and examined--baby's bilirubin is improved today and will be allowed to go home. Resume discharge instructions for Rashmi. Agree with note above.
--- NOTE | 2016-11-20 10:42 | PCM48HPAN ---
Post Anesthesia Note - EVALUATION WITHIN 48HRS OF ANESTHETIC Vital Signs in Normal Range: Yes Patient Participated in Evaluation: Yes Respiratory Function Stable: Yes Airway Patent: Yes Cardiovascular Function Stable: Yes Hydration Status Stable: Yes Pain Control Satisfactory: Yes Nausea and Vomiting Control Satisfactory: Yes Mental Status Recovered: Yes - COMMENTS/OBSERVATIONS Free Text/Narrative:: S/P intrathecal and epidural. Satisfied with anesthesia care. Did well overnite with sleep and baby doing well after 8 hrs of UV lights for elevated bilirubin. Home after noon today.
[2016-11-20] MEDS: Ibuprofen 800 MG Tab PO PRN (10:55)
[2016-11-20 20:35] VITALS: BP 119/76
== END 2016-11-20 11:55 | disposition home or self-care (01) | DRG 560 ==
LOC: MW.OBCHECK 16:41 → MW.OB 16:42 → UNDOADMOB 16:52 → MW.OB 16:52 → MW.OBCHECK 17:47 → UNDOADMOB 11-18 09:10 → MW.OB 11-18 09:10 → UNDOADMOB 11-18 09:11 → OBSVTOIN 11-18 09:11 → INTOOBSV 11-19 09:11 → UNDODISIN 11-20 11:55
PROVIDERS: ADMIT Obstetrics & Gynecology; ATTEND Obstetrics & Gynecology
PROC: 10E0XZZ Delivery of Products of Conception, External Approach (ICD-10-PCS; principal; 2016-11-19)
PROC: 3E0P7GC Introduction of Other Therapeutic Substance into Female Reproductive, Via Natural or Artificial Opening (ICD-10-PCS; 2016-11-19)
PROC: 10907ZC Drainage of Amniotic Fluid, Therapeutic from Products of Conception, Via Natural or Artificial Opening (ICD-10-PCS; 2016-11-19)
DX: O40.3XX0 Polyhydramnios, third trimester, not applicable or unspecified (principal); Z3A.39 39 weeks gestation of pregnancy; Z37.0 Single live birth
CPT/HCPCS: 01967; 01996; 36415; 51703; 59025; 85014; 85018; 85027; 86850; 86900; 86901; A9270-GY; J0595; J2795; J3010; J3105; J7120

== ENCOUNTER 2019-11-08 20:51 | Emergency (ER) | payer BC ==
--- NOTE | 2019-11-08 21:12 | EDM.PDOC ---
<Soraya Akins R - Last Filed: 11/08/19 22:10> ED HPI GENERAL MEDICAL PROBLEM - General Chief Complaint: General Stated Complaint: CHEST PAIN Time Seen by Provider: 11/08/19 20:53 Source of Information: Reports: Patient History Limitations: Reports: No Limitations - History of Present Illness INITIAL COMMENTS - FREE TEXT/NARRATIVE: Presents reporting chest pain. The patient states that about 1:00 today she noted chest pain basically over her upper sternum radiating to both the right and the left to about the midclavicular lines bilateral. It is a stabbing pain not influenced by position or deep breathing. The pain does not radiate anywhere and is not accompanied by nausea, sweating or lightheadedness. She did not injure herself or change her activity pattern over the last few days. She has no history of cardiac problems and denies cough, fever, sore throat or upper respiratory symptoms. She also denies any history of acid reflux or GERD and states the pain is not associated with position or with eating or drinking. She does have a history of anxiety with its primary symptom being chest pain but she states that this pain is much more intense. 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 Musculoskeletal History: Reports: None Neurological History: Reports: None Psychiatric History: Reports: Anxiety Endocrine/Metabolic History: Reports: None Hematologic History: Reports: None Immunologic History: Reports: None - Infectious Disease History Infectious Disease History: Reports: Hepatitis C, Other (See Below) Other Infectious Disease History: pt states at the begining of this she tested positive for hep c but then testing later in was a negative viral load - Past Surgical History HEENT Surgical History: Reports: Adenoidectomy, Tonsillectomy Social & Family History - Family History Family Medical History: Noncontributory Oncologic: Reports: Leukemia, Ovarian - Caffeine Use Caffeine Use: Reports: Tea ED ROS GENERAL - Review of Systems Review Of Systems: Comprehensive ROS is negative, except as noted in HPI. ED EXAM, GENERAL - Physical Exam Exam: See Below Exam Limited By: No Limitations General Appearance: Alert, No Apparent Distress Ears: Normal External Exam Nose: Normal Inspection Throat/Mouth: Normal Inspection Head: Atraumatic, Normocephalic Neck: Normal Inspection Respiratory/Chest: No Respiratory Distress, Lungs Clear, Normal Breath Sounds, Chest Non-Tender Cardiovascular: Normal Peripheral Pulses, Regular Rate, Rhythm, No Murmur GI/Abdominal: Soft, Non-Tender, No Distention Extremities: Normal Inspection Neurological: Alert, Oriented, Normal Cognition Psychiatric: Normal Affect, Normal Mood Skin Exam: Warm, Dry, Intact, Normal Color, No Rash Lymphatic: No Adenopathy Course - Re-Assessments/Exams Free Text/Narrative Re-Assessment/Exam: 11/08/19 22:[address] Koehler, hospitalist including patient medical history, presenting symptoms, lab and EKG. Patient continues to have pain without change. We will get a repeat troponin since her pain started at 1:00 this afternoon. In addition a urine drug screen, chest x-ray. I will of sublingual nitroglycerin to see if there is a change in the pain pattern. Free Text/Narrative Re-Assessment/Exam: 11/08/19 22:18 States that her pain has decreased from 6/10 to 3-4/10 without intervention. Continues sharp. Departure - Departure Disposition: DC/Tfer to Other 70 Clinical Impression: NH, Myocardial infarction - Discharge Information Referrals: PCP,None [Primary Care Provider] - Forms: ED Department Discharge Sepsis Event Note (ED) - Evaluation Sepsis Screening Result: No Definite Risk <Beltran Burton - Last Filed: 11/09/19 02:05> EKG INTERPRETATION EKG Interpretation Comments: EKG #1: 76 Bpm, NSR, normal QRS interval, no STEMI. EKG and rhythm strip interpreted by me at 2058 EKG #2: 84 Bpm, NSR, normal QRS interval, no STEMI. EKG and rhythm strip interpreted by me at 2230 Course - Vital Signs Last Recorded V/S: Last Vital Signs Temp 98.1 F 11/08/19 22:27 Pulse 106 H 11/08/19 22:41 Resp 19 11/08/19 22:41 BP 118/76 11/08/19 22:41 Pulse Ox 99 11/08/19 22:41 - Orders/Labs/Meds Orders: Active Orders 24 hr Category Date Time Status Cardiac Monitoring [RC] . DIRECTED Care 11/08/19 22:42 Active CTA Chest W WO Contrast [Ang Chest] [CT] Stat Exams 11/08/19 22:42 Taken PROCALCITONIN [REF] Stat Lab 11/08/19 22:00 Received Isolation [COMM] Stat Oth 11/08/19 22:42 Active Labs: Laboratory Tests 11/08/19 11/08/19 11/08/19 Range/Units 21:14 21:14 21:14 WBC 3.87 L (4.0-11.0) K/uL RBC 4.18 L (4.30-5.90) M/uL Hgb 12.1 (12.0-16.0) g/dL Hct 35.7 L (36.0-46.0) % MCV 85.4 (80.0-98.0) fL MCH 28.9 (27.0-32.0) pg MCHC 33.9 (31.0-37.0) g/dL RDW Std Deviation 41.8 (28.0-62.0) fl RDW Coeff of Wilma 13 (11.0-15.0) % Plt Count 157 (150-400) K/uL MPV 9.70 (7.40-12.00) fL Neut % (Auto) 71.6 (48.0-80.0) % Lymph % (Auto) 15.5 L (16.0-40.0) % [place] % (Auto) 11.1 (0.0-15.0) % Eos % (Auto) 1.3 (0.0-7.0) % Baso % (Auto) 0.5 (0.0-1.5) % Neut # (Auto) 2.8 (1.4-5.7) K/uL Lymph # (Auto) 0.6 (0.6-2.4) K/uL [place] # (Auto) 0.4 (0.0-0.8) K/uL Eos # (Auto) 0.1 (0.0-0.7) K/uL Baso # (Auto) 0.0 (0.0-0.1) K/uL Nucleated RBC % 0.0 /100WBC Nucleated RBCs # 0 K/uL ESR 6 (0-19) mm/hr INR Lactate (0.20-2.00) mmol/L Sodium 137 (136-145) mmol/L Potassium 3.6 (3.5-5.1) mmol/L Chloride 102 (98-107) mmol/L Carbon Dioxide 23.8 (21.0-32.0) mmol/L BUN 13 (7.0-18.0) mg/dL Creatinine 1.1 H (0.6-1.0) mg/dL Est Cr Clr Drug Dosing 70.88 mL/min Estimated GFR (MDRD) 59.1 ml/min Glucose 92 (74-106) mg/dL Calcium 8.9 (8.5-10.1) mg/dL Ferritin (8-252) ng/mL Total Bilirubin 0.3 (0.2-1.0) mg/dL AST 15 (15-37) IU/L ALT 19 (14-63) IU/L Alkaline Phosphatase 33 L (46-116) U/L Lactate Dehydrogenase (81-234) U/L Troponin I 0.070 H* (0.000-0.056) ng/mL C-Reactive Protein 1.10 H (0.00-0.90) mg/dL Total Protein 7.2 (6.4-8.2) g/dL Albumin 4.0 (3.4-5.0) g/dL Globulin 3.2 (2.6-4.0) g/dL Albumin/Globulin Ratio 1.3 (0.9-1.6) HCG, Qual (NEG) Urine Opiates Screen (NEGATIVE) Ur Oxycodone Screen (NEGATIVE) Urine Methadone Screen (NEGATIVE) Ur Barbiturates Screen (NEGATIVE) Ur Phencyclidine Scrn (NEGATIVE) Ur Amphetamine Screen (NEGATIVE) U Methamphetamines Scrn (NEGATIVE) U Benzodiazepines Scrn (NEGATIVE) U Cocaine Metab Screen (NEGATIVE) U Marijuana (THC) Screen (NEGATIVE) 11/08/19 11/08/19 11/08/19 Range/Units 22:00 22:00 22:00 WBC (4.0-11.0) K/uL RBC (4.30-5.90) M/uL Hgb (12.0-16.0) g/dL Hct (36.0-46.0) % MCV (80.0-98.0) fL MCH (27.0-32.0) pg MCHC (31.0-37.0) g/dL RDW Std Deviation (28.0-62.0) fl RDW Coeff of Wilma (11.0-15.0) % Plt Count (150-400) K/uL MPV (7.40-12.00) fL Neut % (Auto) (48.0-80.0) % Lymph % (Auto) (16.0-40.0) % [place] % (Auto) (0.0-15.0) % Eos % (Auto) (0.0-7.0) % Baso % (Auto) (0.0-1.5) % Neut # (Auto) (1.4-5.7) K/uL Lymph # (Auto) (0.6-2.4) K/uL [place] # (Auto) (0.0-0.8) K/uL Eos # (Auto) (0.0-0.7) K/uL Baso # (Auto) (0.0-0.1) K/uL Nucleated RBC % /100WBC Nucleated RBCs # K/uL ESR (0-19) mm/hr INR 1.09 Lactate (0.20-2.00) mmol/L Sodium (136-145) mmol/L Potassium (3.5-5.1) mmol/L Chloride (98-107) mmol/L Carbon Dioxide (21.0-32.0) mmol/L BUN (7.0-18.0) mg/dL Creatinine (0.6-1.0) mg/dL Est Cr Clr Drug Dosing mL/min Estimated GFR (MDRD) ml/min Glucose (74-106) mg/dL Calcium (8.5-10.1) mg/dL Ferritin (8-252) ng/mL Total Bilirubin (0.2-1.0) mg/dL AST (15-37) IU/L ALT (14-63) IU/L Alkaline Phosphatase (46-116) U/L Lactate Dehydrogenase (81-234) U/L Troponin I 0.072 H* (0.000-0.056) ng/mL C-Reactive Protein (0.00-0.90) mg/dL Total Protein (6.4-8.2) g/dL Albumin (3.4-5.0) g/dL Globulin (2.6-4.0) g/dL Albumin/Globulin Ratio (0.9-1.6) HCG, Qual NEGATIVE (NEG) Urine Opiates Screen (NEGATIVE) Ur Oxycodone Screen (NEGATIVE) Urine Methadone Screen (NEGATIVE) Ur Barbiturates Screen (NEGATIVE) Ur Phencyclidine Scrn (NEGATIVE) Ur Amphetamine Screen (NEGATIVE) U Methamphetamines Scrn (NEGATIVE) U Benzodiazepines Scrn (NEGATIVE) U Cocaine Metab Screen (NEGATIVE) U Marijuana (THC) Screen (NEGATIVE) 11/08/19 11/08/19 11/08/19 Range/Units 22:00 22:00 22:00 WBC (4.0-11.0) K/uL RBC (4.30-5.90) M/uL Hgb (12.0-16.0) g/dL Hct (36.0-46.0) % MCV (80.0-98.0) fL MCH (27.0-32.0) pg MCHC (31.0-37.0) g/dL RDW Std Deviation (28.0-62.0) fl RDW Coeff of Wilma (11.0-15.0) % Plt Count (150-400) K/uL MPV (7.40-12.00) fL Neut % (Auto) (48.0-80.0) % Lymph % (Auto) (16.0-40.0) % [place] % (Auto) (0.0-15.0) % Eos % (Auto) (0.0-7.0) % Baso % (Auto) (0.0-1.5) % Neut # (Auto) (1.4-5.7) K/uL Lymph # (Auto) (0.6-2.4) K/uL [place] # (Auto) (0.0-0.8) K/uL Eos # (Auto) (0.0-0.7) K/uL Baso # (Auto) (0.0-0.1) K/uL Nucleated RBC % /100WBC Nucleated RBCs # K/uL ESR (0-19) mm/hr INR Lactate 0.5 (0.20-2.00) mmol/L Sodium (136-145) mmol/L Potassium (3.5-5.1) mmol/L Chloride (98-107) mmol/L Carbon Dioxide (21.0-32.0) mmol/L BUN (7.0-18.0) mg/dL Creatinine (0.6-1.0) mg/dL Est Cr Clr Drug Dosing mL/min Estimated GFR (MDRD) ml/min Glucose (74-106) mg/dL Calcium (8.5-10.1) mg/dL Ferritin 63 (8-252) ng/mL Total Bilirubin (0.2-1.0) mg/dL AST (15-37) IU/L ALT (14-63) IU/L Alkaline Phosphatase (46-116) U/L Lactate Dehydrogenase 177 (81-234) U/L Troponin I (0.000-0.056) ng/mL C-Reactive Protein (0.00-0.90) mg/dL Total Protein (6.4-8.2) g/dL Albumin (3.4-5.0) g/dL Globulin (2.6-4.0) g/dL Albumin/Globulin Ratio (0.9-1.6) HCG, Qual (NEG) Urine Opiates Screen (NEGATIVE) Ur Oxycodone Screen (NEGATIVE) Urine Methadone Screen (NEGATIVE) Ur Barbiturates Screen (NEGATIVE) Ur Phencyclidine Scrn (NEGATIVE) Ur Amphetamine Screen (NEGATIVE) U Methamphetamines Scrn (NEGATIVE) U Benzodiazepines Scrn (NEGATIVE) U Cocaine Metab Screen (NEGATIVE) U Marijuana (THC) Screen (NEGATIVE) 11/08/19 Range/Units 22:30 WBC (4.0-11.0) K/uL RBC (4.30-5.90) M/uL Hgb (12.0-16.0) g/dL Hct (36.0-46.0) % MCV (80.0-98.0) fL MCH (27.0-32.0) pg MCHC (31.0-37.0) g/dL RDW Std Deviation (28.0-62.0) fl RDW Coeff of Wilma (11.0-15.0) % Plt Count (150-400) K/uL MPV (7.40-12.00) fL Neut % (Auto) (48.0-80.0) % Lymph % (Auto) (16.0-40.0) % [place] % (Auto) (0.0-15.0) % Eos % (Auto) (0.0-7.0) % Baso % (Auto) (0.0-1.5) % Neut # (Auto) (1.4-5.7) K/uL Lymph # (Auto) (0.6-2.4) K/uL [place] # (Auto) (0.0-0.8) K/uL Eos # (Auto) (0.0-0.7) K/uL Baso # (Auto) (0.0-0.1) K/uL Nucleated RBC % /100WBC Nucleated RBCs # K/uL ESR (0-19) mm/hr INR Lactate (0.20-2.00) mmol/L Sodium (136-145) mmol/L Potassium (3.5-5.1) mmol/L Chloride (98-107) mmol/L Carbon Dioxide (21.0-32.0) mmol/L BUN (7.0-18.0) mg/dL Creatinine (0.6-1.0) mg/dL Est Cr Clr Drug Dosing mL/min Estimated GFR (MDRD) ml/min Glucose (74-106) mg/dL Calcium (8.5-10.1) mg/dL Ferritin (8-252) ng/mL Total Bilirubin (0.2-1.0) mg/dL AST (15-37) IU/L ALT (14-63) IU/L Alkaline Phosphatase (46-116) U/L Lactate Dehydrogenase (81-234) U/L Troponin I (0.000-0.056) ng/mL C-Reactive Protein (0.00-0.90) mg/dL Total Protein (6.4-8.2) g/dL Albumin (3.4-5.0) g/dL Globulin (2.6-4.0) g/dL Albumin/Globulin Ratio (0.9-1.6) HCG, Qual (NEG) Urine Opiates Screen NEGATIVE (NEGATIVE) Ur Oxycodone Screen NEGATIVE (NEGATIVE) Urine Methadone Screen NEGATIVE (NEGATIVE) Ur Barbiturates Screen NEGATIVE (NEGATIVE) Ur Phencyclidine Scrn NEGATIVE (NEGATIVE) Ur Amphetamine Screen NEGATIVE (NEGATIVE) U Methamphetamines Scrn NEGATIVE (NEGATIVE) U Benzodiazepines Scrn NEGATIVE (NEGATIVE) U Cocaine Metab Screen NEGATIVE (NEGATIVE) U Marijuana (THC) Screen NEGATIVE (NEGATIVE) Meds: Medications Discontinued Medications Generic Name Dose Route Start Last Admin Trade Name Freq PRN Reason Stop Dose Admin Aspirin 324 mg 11/08/19 22:54 11/08/19 23:06 Aspirin PO 11/08/19 22:55 324 mg ONETIME ONE Administration Aspirin Confirm 11/08/19 22:56 11/08/19 23:07 Aspirin Administered 11/08/19 22:57 Not Given Dose 324 mg .ROUTE .STK-MED ONE Iopamidol 100 ml 11/08/19 23:50 11/08/19 23:51 Isovue Multipack-370 (76%) IVPUSH 11/08/19 23:51 100 ml ONETIME STA Administration Nitroglycerin 0.4 mg 11/08/19 22:05 11/08/19 22:22 Nitrostat SL 0.4 mg Q5M PRN Administration Chest Pain - Re-Assessments/Exams Free Text/Narrative Re-Assessment/Exam: 11/08/19 22:15 This patient was signed out to me (Dr. Burton) at this time. I promptly performed a detailed physical examination, my examination was performed after ED treatments were initiated by the signout provider. Patient has been under the care of the previous provider up until this point. See my history below. Patient is a 29-year-old female who presents with acute onset pleuritic left- sided chest pain at 1 PM today after putting her kids down for a nap. Pain at that time was 9/10. Described as sharp, severe, localized to the left chest and radiates to the right anterior chest. Pain is nonexertional and non- positional. Associated with generalized malaise, subjective fevers, diffuse myalgia. She denies runny nose, cough, sore throat, shortness of breath, drug use, leg pain or swelling. She is currently on control. She has 2 kids at home, 1 of which attends preschool with a class size of 14. 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 She denies COVID exposure. She is currently on control. She has a family history of NH, her mother's father had an NH at the age of 58. Pain initially pre-nitroglycerin was 6/10. 11/08/19 22:50 After 3 sublingual nitroglycerin, her chest pain was down to 1/10. repeat EKG performed. Repeat troponin trended up from 0.070 to 0.072. Result discussed with Dr. Winslow again, she recommends transfer outside facility for stat echocardiogram not available at this facility, and the need for senior treasury consultant services unavailable at this facility. Any emergency conditions have been stabilized to the ability of the ED prior to the transfer. Case was discussed with transfer center and transfer arranged to outside facility/higher level of care. 11/09/19 00:41 Attempted to call [facility] at [facility], they are on diversion. Called [facility] at [facility], they are also on diversion. 11/09/19 01:15 Attempted to call [facility], they are unable to take our transfer at this point. 11/09/19 02:03 Case discussed with at [facility], will accept transfer now. Patient still chest pain free. Departure - Departure Time of Disposition: 02:04 Condition: Good - Discharge Information *PRESCRIPTION DRUG MONITORING PROGRAM REVIEWED*: Not Applicable *COPY OF PRESCRIPTION DRUG MONITORING REPORT IN PATIENT COLBY: Not Applicable Critical Care Note - Critical Care Note Total Time (mins): 128 Comments: Critical Care: The high probability of sudden, clinically significant deterioration in the patient's condition required the highest level of my preparedness to intervene urgently. The services I provided to this patient were to treat and/or prevent clinically significant deterioration. Services included the following: chart data review, reviewing nursing notes and/or old charts, documentation time, senior treasury consultant collaboration regarding findings and treatment options, medication orders and management, direct patient care, vital sign assessments and ordering, interpreting and reviewing diagnostic studies/lab tests. Aggregate critical care time includes only time during which I was engaged in work directly related to the patient's care, as described above, whether at the bedside or elsewhere in the Emergency Department. It did not include time spent performing other reported procedures or the services of residents, students, nurses or physician assistants. Frequent interventions and/or frequent repeat evaluations were required as well as counseling and coordination of care regarding prognosis, treatments, and discussions with patient, staff and consultants. Critical Care (excluding other procedures): 128 minutes Sepsis Event Note (ED) - Focused Exam Vital Signs: Vital Signs Temp Pulse Resp BP BP Pulse Ox 11/08/19 22:41 106 H 19 118/76 99 11/08/19 22:27 98.1 F 105 H 12 106/71 99 11/08/19 22:22 101 H 15 115/69 115/69 93 L 11/08/19 22:17 99 12 115/72 115/72 98 11/08/19 22:12 107 H 15 134/74 134/74 99 11/08/19 20:55 97.8 F 73 16 141/79 H 100 - My Orders Last 24 Hours: My Active Orders 11/08/19 22:00 PROCALCITONIN [REF] Stat 11/08/19 22:42 Cardiac Monitoring [RC] . DIRECTED CTA Chest W WO Contrast [Ang Chest] [CT] Stat Isolation [COMM] Stat - Assessment/Plan Last 24 Hours: My Active Orders 11/08/19 22:00 PROCALCITONIN [REF] Stat 11/08/19 22:42 Cardiac Monitoring [RC] . DIRECTED CTA Chest W WO Contrast [Ang Chest] [CT] Stat Isolation [COMM] Stat
[2019-11-08 21:46] LABS: CARBON DIOXIDE,CO2 23.8 mmol/L (21.0-32.0); POTASSIUM,K 3.6 mmol/L (3.5-5.1)
[2019-11-08] MEDS: Nitroglycerin 0.4 MG Tab.SL SL PRN ×3 (22:12→22:22)
[2019-11-08] MEDS ORDERED: Aspirin 81 MG Tab.Chew PO ONE (22:54)
[2019-11-08] MEDS ORDERED: Aspirin 81 MG Tab.Chew ONE (22:56)
[2019-11-08] MEDS ORDERED: Iopamidol 755 MG/ML 500 ML Multipack Bottle IVPUSH STA (23:50)
[2019-11-09 01:54] VITALS: BP 116/64; PULSE 89
--- NOTE | 2019-11-09 11:14 | CT ---
INDICATION: Pleuritic chest pain TECHNIQUE: CT chest and abdomen with i.v. contrast during the arterial phase. Coronal and sagittal reformats were obtained. CONTRAST: 100 mL Isovue 370 COMPARISON: None FINDINGS: CHEST: Cardiovascular: The heart has an unremarkable appearance and size. The presence of intramural hematoma cannot be assessed without noncontrast images. No aneurysm or dissection in the thoracic aorta. The pulmonary arteries are unremarkable in appearance. No acute pulmonary emboli seen in the central pulmonary arteries. Mediastinum: Soft tissue is noted in the anterior mediastinum which is likely due to residual thymic tissue in this young patient. Lung: Both lungs are unremarkable in appearance. Pleura and pericardium: No sign of pleural effusion seen. No significant pericardial effusion is present. Chest wall and axilla: No mass or adenopathy seen. Bone: Unremarkable for age. No acute osseous injuries seen. ABDOMEN: Liver: Unremarkable. Spleen: Unremarkable. Pancreas: Unremarkable. Gallbladder: Unremarkable. Kidney: Unremarkable. No kidney or ureteral stones or obstruction seen. Adrenal: Unremarkable. Bowel: Unremarkable. The appendix is normal in appearance and size. Vascular: Abdominal aorta and its tributaries are normal appearance no dissection identified. Lymph: Unremarkable. Peritoneum: Unremarkable. No pneumoperitoneum is seen. No significant ascites is noted. Soft tissue: Unremarkable. Bone: Unremarkable for age. No acute osseous injuries seen. IMPRESSION: 1. No CT evidence of intramural hematoma or aortic dissection seen. Dictated by Luís Cardona MD @ 11/09/2019 12:34:02 AM Please note that all CT scans at this facility use dose modulation, iterative reconstruction, and/or weight-based dosing when appropriate to reduce radiation dose to as low as reasonably achievable. Dictated by: Luís Cardona MD @ 11/09/2019 00:34:56 (Electronically Signed) [facility]
== END 2019-11-09 03:22 | disposition other institution (70) ==
LOC: MW.ED 20:51
DX: U07.1 COVID-19 (principal); I21.9 Acute myocardial infarction, unspecified; F41.9 Anxiety disorder, unspecified; Z79.899 Other long term (current) drug therapy
CPT/HCPCS: 36415; 71275; 74175; 80053; 80305; 82728; 83605; 83615; 84145; 84484; 84703; 85025; 85610; 85652; 86140; 87635; 93005; 99291; 99292; A9270; Q9967; U0002

== ENCOUNTER 2020-05-16 21:04 | Emergency (ER) | payer BC ==
[2020-05-16] MEDS ORDERED: Aspirin 81 MG Tab.Chew PO ONE (21:21)
--- NOTE | 2020-05-16 21:40 | PCM.EKG ---
#1 Interpretation EKG Date: 05/16/20 Time: 21:15 Rhythm: NSR Rate (Beats/Min): 77 Ione: Normal P-Wave: Present QRS: Normal ST-T: Other (RBBB) QT: Normal Comparison: No Change (11/08/19) EKG Interpretation Comments: Sinus rhythm w/ RBBB
--- NOTE | 2020-05-16 21:57 | CR ---
Indication: Chest pain Technique: Chest 1 view Comparison: None Findings/Impression: Cardiovascular and mediastinum: Heart size and vasculature are normal in caliber and appearance. Lungs and pleural space: Lungs are clear. No sign of infiltrate or mass. No sign of pleural effusion. No pneumothorax. Bones and soft tissues: No acute findings. Dictated by Tim Soto MD @ May 16 2020 9:56PM Signed by Dr. Tim Soto @ May 16 2020 9:57PM
[2020-05-16 22:05] LABS: BLOOD UREA NITROGEN,BUN 17 mg/dL (7.0-18.0); CARBON DIOXIDE,CO2 23.4 mmol/L (21.0-32.0); CHLORIDE,CL 107 mmol/L (98-107); GLUCOSE RANDOM 126 mg/dL (74-106); POTASSIUM,K 3.9 mmol/L (3.5-5.1); SODIUM,NA 143 mmol/L (136-145)
[2020-05-16] MEDS ORDERED: Nitroglycerin 0.4 MG Tab.SL SL ONE (23:08)
[2020-05-17] MEDS ORDERED: Ibuprofen 600 MG Tab PO ONE (01:55)
--- NOTE | 2020-05-17 02:02 | EDM.PDOC ---
ED HPI GENERAL MEDICAL PROBLEM - General Chief Complaint: Chest Pain Stated Complaint: CHEST PAIN Time Seen by Provider: 05/16/20 21:11 - History of Present Illness INITIAL COMMENTS - FREE TEXT/NARRATIVE: CHIEF COMPLAINT(S): Chest pain HISTORY OF PRESENT ILLNESS: This is a 30-year-old woman with a past medical history of endometriosis, COVID-19 infection in October 2019 with resultant possible myocarditis who comes to the emergency department with a chief complaint of chest pain. The patient states that she has been experiencing left-sided chest pain especially with deep breathing. She describes it as a stabbing sharp chest pain rated 7-8 out of 10 during exertion and movement especially when picking up her child. She states that when she sitting it is dull rated 1 out of 10. She states that she does have some associated exertional dyspnea since she has had Covid and fatigue. She denies any diaphoresis, nausea or vomiting with the chest pain. She states that the pain feels similar to October but this has continued since she was discharged from [facility] in [place]. She states that in October though the chest pain was sharp and constant. She states that she has been experiencing the symptoms intermittently since being discharged and has had slight improvement however given the pleuritic chest pain she contacted Dr. Brown who told her to come to the emergency department. She states that she has seen cardiology here with Dr. Lemus who prescribed her amlodipine for possible concern of Prinzmetal angina. She states that initially she thought it was helping however it continues to cause pain. She does not have the results yet of her Holter monitor. She denies any recent travel, recent surgery, prior history of DVT or PE. She denies any known history of CAD or CHF. She denies any family history of CAD or CHF. REVIEW OF SYSTEMS: Constitutional: Denies fever, chills. Eyes: Denies eye pain Ears, Nose, Mouth, & Throat: Denies earache Cardiovascular: Positive for left-sided pleuritic chest pain and exertional chest pain. Denies lower extremity edema Respiratory: Positive for exertional dyspnea. Denies shortness of breath Gastrointestinal: Denies abdominal distention, nausea, vomiting, diarrhea, hematochezia. Genitourinary: Denies hematuria Skin:Denies a rash MSK: Denies joint pain Neurological: Denies blurred vision, numbness, tingling, weakness Psychiatric: Denies depression PAST MEDICAL HISTORY: As per history of present illness and as reviewed below otherwise noncontributory. SURGICAL HISTORY: As per history of present illness and as reviewed below otherwise noncontributory. LMP: Currently on her period SOCIAL HISTORY: As per history of present illness and as reviewed below otherwise noncontributory. FAMILY HISTORY: As per history of present illness and as reviewed below otherwise noncontributory. EXAMINATION OF ORGAN SYSTEMS/BODY AREAS: Constitutional: Blood pressure is 137/72, heart rate 72, respiratory rate 18 with an oxygen saturation of 97% on room air. Temperature 36.6 General: Overall well-appearing woman who is in no acute distress. Psychiatric: Appropriate mood and affect. Eyes: No scleral icterus or conjunctival erythema ENMT: Moist mucous membranes. No pharyngeal erythema Cardiovascular: Regular, rate, and rhythm. No gallops, murmurs, or rubs. Bilateral upper extremity pulses symmetric and intact. No peripheral edema. No JVD. There is no pericardial friction rub. The pain is not positional. Respiratory: Lungs clear to auscultation bilaterally. No wheezes, rales, or rhonchi. Gastrointestinal: Soft, non-tender, non-distended. Normoactive bowel sounds Genitourinary: No suprapubic tenderness Musculoskeletal: Normal range of motion. Skin: No lesions or abrasions. Neurological: Alert, GCS 15 MEDICAL DECISION MAKING AND COURSE IN THE ED WITH INTERPRETATION/REVIEW OF DIAGNOSTIC STUDIES: This is a 30-year-old woman with a past medical history of COVID-19 infection in October 2019 with possible resultant myocarditis versus Prinzmetal angina who follows with our component lab tech in [facility] who comes to the emergency department with acute intermittent left-sided pleuritic chest pain with exertional dyspnea and exertional chest pain who overall appears well with normal vital signs. An EKG was obtained which did not reveal any acute signs of ischemia. We provided the patient with 324 mg of p.o. aspirin. At this time given her history will obtain a cardiac work-up. The patient was placed on cardiac monitoring and pulse oximetry. Differential diagnosis includes ACS, pericarditis, continued myocarditis, CHF. The patient does not have any overt signs of CHF on examination. Patient denied any orthopnea. I did review the patient's chart and the patient has been seen by Dr. Lemus. The patient had an echocardiogram done January 02, 2020 given her symptoms which did reveal a normal ejection fraction of 60 to 65% with normal diastolic filling. No evidence of endocarditis no regional wall motion abnormalities. Patient also underwent a CT angiogram cardiac on March 20, 2020 which did not reveal any coronary artery stenosis and no significant coronary artery disease. Holter monitor report did not reveal any evidence of ventricular tachycardia, AV block, atrial fibrillation on January 12, 2020. The patient also underwent CT angiogram of the chest in October 2019 which did not reveal any evidence of intra mural hematoma, aortic dissection or obvious pulmonary embolism. Heart Score History: Moderately Suspicious (1) ECG: Non-specific repolarization (1) Age: <45 (0) Risk Factors: No known risk factors (0) Initial Troponin: 1-2x normal (1) Total Score: 3 Laboratory: CBC reveals a normocytic anemia with a hemoglobin of 11.9 and hematocrit of 35.2 which is decreased from prior at 12.4 and 37.2 otherwise unremarkable. BMP is unremarkable. Magnesium is normal. Troponin is positive at 0.097 which is increased from prior at 0.072. BNP is 14. Covid is negative. The radiological images were viewed by myself along with reading the report from the radiologist. Chest x-ray does not reveal any acute cardiopulmonary findings. After initial laboratory analysis I did have a discussion with the patient regarding the results. At the time of my evaluation the patient had continued mild pain. She stated that last time nitroglycerin seemed to help with the pain therefore we will provide the patient with 0.4 of sublingual nitroglycerin and reevaluate. I did discuss with her at this time that I would like to contact [facility] in [place] to speak with the component lab tech who evaluated her for possible myocarditis. She stated that she was amenable to this plan. I contacted [facility] in [place] and spoke with Dr. Vazquez the hospitalist who admitted her last time. The patient component lab tech Dr. Osborne could not be reachable at this time. In discussion with the hospitalist she stated that it is unusual for the patient to have myocarditis this far and does not recommend transfer at this time however possible observation admission for echocardiogram and repeat troponin. I contacted our hospitalist Dr. Koehler for observation admission however given that we do not have cardiology or access to catheterization lab or other market analyst or cardiology she recommended transfer as we are not capable of handling this patient in our hospital. At this time the patient was reevaluated, her pain had continued. I did offer other pain medication strategies. She states that she is all right at this time and does not want any opiate medications. We will hold off on pain medication at this time. I discussed that I would like to obtain a repeat troponin and then reevaluate for disposition. She was amenable to this plan. Laboratory: Repeat troponin was decreased at 0.094. Given the uncertain history of myocarditis in my initial attempt to speak with cardiology was unsuccessful I did contact [facility] to speak with cardiology on-call. I was able to be connected with Dr. Padilla and the hospitalist who I spoke with prior regarding the patient. I did discuss the case with them. At this time cardiology stated that they have been seeing post Covid chest pain similar to hers and at this time there is no indication for cardiac catheterization or cardiac MRI. He states that he does not believe this is myocarditis. He states that given the patient is following up with cardiology in [facility] there is no need for intervention at this time. In discussion with both hospitalist and cardiology the patient has already had an echocardiogram, CT angiogram and Holter monitor therefore nothing more can be offered at this time. I did discuss with them management and disposition. Dr. Padilla stated that the patient should be stable for discharge and follow-up with cardiology here in [facility]. Given that the patient has continued pain I did discuss the possibility be of pericarditis. He stated that given the patient is young a trial of NSAIDs can be initiated and that she can follow-up with Dr. Lemus here in [facility]. He stated they can also follow-up with cardiology in [place] if she wants. After discussion with cardiology and multiple hospitalist I did discuss this with the patient. She states that she is comfortable with discharge at this time and follow-up with cardiology here in [facility]. At this time I did discuss with her that I had like to obtain a repeat EKG and do a bedside echocardiogram to evaluate for any pericardial effusion or any obvious abnormality. She was amenable to this plan. Bedside cardiac ultrasound Bedside cardiac ultrasound was performed with RN juanjose present. The patient did not have any evidence of pericardial effusion. There was no evidence of right heart strain. Ejection fraction appeared to be normal. Repeat EKG was unchanged from prior. At this time, the patient was amenable to discharge. I discussed that I had be providing her with ibuprofen 600 mg every 8 hours for the next 10 days. I discussed with her that if she had any worsening chest pain, shortness of breath, fever, syncope that she need to return to the emergency department. I discussed with her that I had be placing her on the cardiac follow-up list and that she should contact her component lab tech tomorrow morning for an appointment within the next 1 to 2 days. She was amenable to discharge at this time and had no further questions. DISPOSITION: The patient was discharged home in stable condition. The patient will follow up with cardiology within the next 2 days CONDITION: Fair PROCEDURES: Bedside cardiac ultrasound FINAL IMPRESSION(S)/DIAGNOSES: 1. Acute on chronic left-sided chest pain 2. Acute elevated troponin, unknown etiology Micheal Lozano M.D. chest pain Pain Score (Numeric/FACES): 6 - Related Data Allergies Allergy/AdvReac Type Severity Reaction Status Date / Time No Known Allergies Allergy Verified 05/16/20 21:13 Home Meds: Home Meds Sertraline HCl 25 mg PO DAILY 11/08/19 [History] amLODIPine [Norvasc] 5 mg PO DAILY 05/16/20 [History] Ibuprofen 600 mg PO Q8HR #30 tablet 05/17/20 [Rx] Past Medical History HEENT History: Reports: None Cardiovascular History: Reports: None Respiratory History: Reports: None Gastrointestinal History: Reports: GERD Genitourinary History: Reports: None CAN FEEDER History: Reports: , Spontaneous Musculoskeletal History: Reports: None Neurological History: Reports: None Psychiatric History: Reports: Anxiety Endocrine/Metabolic History: Reports: None Insulin Pump Model and Tire Manager: None Hematologic History: Reports: None Immunologic History: Reports: None Dermatologic History: Reports: None - Infectious Disease History Infectious Disease History: Reports: Hepatitis C, Other (See Below) Other Infectious Disease History: pt states at the begining of this she tested positive for hep c but then testing later in was a negative viral load. Covid-19 - Past Surgical History HEENT Surgical History: Reports: Adenoidectomy, Tonsillectomy Female Surgical History: Reports: None Social & Family History - Family History Family Medical History: No Pertinent Family History Oncologic: Reports: Leukemia, Ovarian - Caffeine Use Caffeine Use: Reports: Tea - Recreational Drug Use Recreational Drug Use: No ED ROS GENERAL - Review of Systems Review Of Systems: See Below ED EXAM, GENERAL - Physical Exam Exam: See Below Course - Vital Signs Last Recorded V/S: Last Vital Signs Temp 36.6 C 05/16/20 21:05 Pulse 60 05/17/20 02:09 Resp 14 05/17/20 02:09 BP 109/69 05/17/20 02:09 Pulse Ox 99 05/17/20 02:09 - Orders/Labs/Meds Labs: Laboratory Tests 05/16/20 05/16/20 05/16/20 Range/Units 21:20 21:20 21:20 WBC 5.54 (4.0-11.0) K/uL RBC 4.15 L (4.30-5.90) M/uL Hgb 11.9 L (12.0-16.0) g/dL Hct 35.2 L (36.0-46.0) % MCV 84.8 (80.0-98.0) fL MCH 28.7 (27.0-32.0) pg MCHC 33.8 (31.0-37.0) g/dL RDW Std Deviation 41.6 (28.0-62.0) fl RDW Coeff of Wilma 14 (11.0-15.0) % Plt Count 184 (150-400) K/uL MPV 9.60 (7.40-12.00) fL Neut % (Auto) 44.7 L (48.0-80.0) % Lymph % (Auto) 42.1 H (16.0-40.0) % Benson % (Auto) 9.6 (0.0-15.0) % Eos % (Auto) 3.1 (0.0-7.0) % Baso % (Auto) 0.5 (0.0-1.5) % Neut # (Auto) 2.5 (1.4-5.7) K/uL Lymph # (Auto) 2.3 (0.6-2.4) K/uL Benson # (Auto) 0.5 (0.0-0.8) K/uL Eos # (Auto) 0.2 (0.0-0.7) K/uL Baso # (Auto) 0.0 (0.0-0.1) K/uL Nucleated RBC % 0.0 /100WBC Nucleated RBCs # 0 K/uL Sodium 143 (136-145) mmol/L Potassium 3.9 (3.5-5.1) mmol/L Chloride 107 (98-107) mmol/L Carbon Dioxide 23.4 (21.0-32.0) mmol/L BUN 17 (7.0-18.0) mg/dL Creatinine 0.8 (0.6-1.0) mg/dL Est Cr Clr Drug Dosing 96.59 mL/min Estimated GFR (MDRD) > 60.0 ml/min Glucose 126 H (74-106) mg/dL Calcium 8.6 (8.5-10.1) mg/dL Magnesium 2.0 (1.8-2.4) mg/dL Troponin I 0.097 H* (0.000-0.056) ng/mL B-Natriuretic Peptide 14 (<100) PG/ML SARS-CoV-2 RNA (KEITH) (NEGATIVE) 05/16/20 05/17/20 Range/Units 23:13 00:31 WBC (4.0-11.0) K/uL RBC (4.30-5.90) M/uL Hgb (12.0-16.0) g/dL Hct (36.0-46.0) % MCV (80.0-98.0) fL MCH (27.0-32.0) pg MCHC (31.0-37.0) g/dL RDW Std Deviation (28.0-62.0) fl RDW Coeff of Wilma (11.0-15.0) % Plt Count (150-400) K/uL MPV (7.40-12.00) fL Neut % (Auto) (48.0-80.0) % Lymph % (Auto) (16.0-40.0) % Benson % (Auto) (0.0-15.0) % Eos % (Auto) (0.0-7.0) % Baso % (Auto) (0.0-1.5) % Neut # (Auto) (1.4-5.7) K/uL Lymph # (Auto) (0.6-2.4) K/uL Benson # (Auto) (0.0-0.8) K/uL Eos # (Auto) (0.0-0.7) K/uL Baso # (Auto) (0.0-0.1) K/uL Nucleated RBC % /100WBC Nucleated RBCs # K/uL Sodium (136-145) mmol/L Potassium (3.5-5.1) mmol/L Chloride (98-107) mmol/L Carbon Dioxide (21.0-32.0) mmol/L BUN (7.0-18.0) mg/dL Creatinine (0.6-1.0) mg/dL Est Cr Clr Drug Dosing mL/min Estimated GFR (MDRD) ml/min Glucose (74-106) mg/dL Calcium (8.5-10.1) mg/dL Magnesium (1.8-2.4) mg/dL Troponin I 0.094 H* (0.000-0.056) ng/mL B-Natriuretic Peptide (<100) PG/ML SARS-CoV-2 RNA (KEITH) NEGATIVE (NEGATIVE) Meds: Medications Discontinued Medications Generic Name Dose Route Start Last Admin Trade Name Freq PRN Reason Stop Dose Admin Aspirin 324 mg 05/16/20 21:21 05/16/20 21:37 Aspirin PO 05/16/20 21:22 324 mg ONETIME ONE Administration Ibuprofen 600 mg 05/17/20 01:55 05/17/20 02:09 Motrin PO 05/17/20 01:56 600 mg ONETIME ONE Administration Nitroglycerin 0.4 mg 05/16/20 23:08 05/16/20 23:13 Nitrostat SL 05/16/20 23:09 0.4 mg ONETIME ONE Administration Departure - Departure Time of Disposition: 02:01 Disposition: Home, Self-Care 01 Condition: Fair Clinical Impression: Elevated troponin Chest pain Qualifiers: Chest pain type: chest pain on breathing Qualified Code(s): R07.1 - Chest pain on breathing Prescriptions: Ibuprofen 600 mg PO Q8HR #30 tablet Instructions: Pericarditis, Troponin Test Referrals: PCP,None [Primary Care Provider] - Yessy Winters MD [Physician] - Forms: ED Department Discharge Additional Instructions: You were evaluated today on an emergent basis. At this time your troponin was elevated to 0.097 and decreased to 0.094. This was increased from your prior troponins at 0.072. After lengthy discussion with our hospitalist here in [facility], the hospitalist at [facility] and component lab tech Dr. Padilla in [place] and given that you have had a recent echocardiogram, CT angiogram and that you do have results pending from your Holter monitor and have close follow-up with Dr. Lemus they do not recommend transfer at this time or repeat imaging or work-up. We did do a bedside ultrasound of your heart which did not reveal any decreased function of your heart with no signs of fluid around the heart. At this time it is uncertain as to what is causing the continued chest pain and the increased troponin and in discussion with cardiology they do not believe this is continued myocarditis. Dr. Padilla stated that this has been common with post coronavirus patients and a discussion with him we will trial treatment for possible pericarditis with ibuprofen 600 mg every 8 hours for the next 7 to 10 days. We would like you to follow-up with cardiology within 1 to 2 days. You are welcome to contact [facility] for an appointment with cardiology in [place] otherwise Dr. Lemus is appropriate at this time. If you have any worsening of your chest pain that becomes more constant, worsening shortness of breath, swelling of the lower extremities, fever, or passing out please return to the emergency department. The patient is informed of any results of their evaluation and diagnostic workup and all questions are answered. They are given discharge instructions and return precautions. The patient is stable for discharge. The patient states they understand and agree with the plan and that they will return if their symptoms get worse or if they have any new concerns. The following information is given to patients seen in the emergency department who are being discharged to home. This information is to outline your options for follow-up care. We provide all patients seen in our emergency department with a follow-up referral. The need for follow-up, as well as the timing and circumstances, are variable depending upon the specifics of your emergency department visit. If you don't have a primary care physician on staff, we will provide you with a referral. We always advise you to contact your personal physician following an emergency department visit to inform them of the circumstance of the visit and for follow-up with them and/or the need for any referrals to a consulting specialist. The emergency department will also refer you to a specialist when appropriate. This referral assures that you have the opportunity for follow-up care with a specialist. All of these measure are taken in an effort to provide you with optimal care, which includes your follow-up. Under all circumstances we always encourage you to contact your private physician who remains a resource for coordinating your care. When calling for follow-up care, please make the office aware that this follow-up is from your recent emergency room visit. If for any reason you are refused follow-up, please contact the [facility] Emergency Department at and asked to speak to the emergency department charge nurse. Sepsis Event Note (ED) - Evaluation Sepsis Screening Result: No Definite Risk - Focused Exam Vital Signs: Vital Signs Temp Pulse Resp BP BP Pulse Ox 05/17/20 02:09 60 14 109/69 99 05/17/20 00:28 70 18 112/75 98 05/16/20 23:31 68 16 111/68 97 05/16/20 23:13 114/69 05/16/20 22:09 70 18 104/67 98 05/16/20 21:39 76 12 111/75 99 05/16/20 21:05 36.6 C 72 18 137/72 97
--- NOTE | 2020-05-17 02:05 | PCM.EKG ---
#1 Interpretation EKG Date: 05/17/20 Time: 01:53 Rhythm: NSR Rate (Beats/Min): 59 [facility]: Normal P-Wave: Present QRS: Normal ST-T: Normal QT: Normal Comparison: No Change (from today) EKG Interpretation Comments: Sinus Rhythm with RBBB
[2020-05-17 02:10] VITALS: BP 109/69; PULSE 60
== END 2020-05-17 02:14 | disposition home or self-care (01) ==
LOC: MW.ED 21:04
DX: R07.1 Chest pain on breathing (principal); R79.89 Other specified abnormal findings of blood chemistry; D64.9 Anemia, unspecified; Z20.822 Contact with and (suspected) exposure to COVID-19
CPT/HCPCS: 36415; 71045; 80048; 83735; 83880; 84484; 85025; 87635; 93005; 99285; A9270; 93010; 99283; U0002